=== PATIENT | male | born 1995 | race Hispanic/Latino ===

== ENCOUNTER 2017-05-29 15:53 | Emergency (ER) | payer OTHER ==
[~2017-05-29] VITALS: Ht 175.3 cm; Wt 81.8 kg
[2017-05-29 15:55] VITALS: BP 137/83; PULSE 83; RESP 16; O2SAT 100
--- NOTE | 2017-05-29 16:02 | ED.REPORT ---
HPI-Facial Injury Date of Service May 29, 2017 ED Provider: History of Present Illness: 22-year-old male for left upper eyelid laceration. He was elbowed during a soccer match today. He did not lose consciousness, no dizziness, no nausea or vomiting. He has no visual complaints, his globe itself is not painful. No discharge from his eye. Sent from urgent care. Nursing Notes Stated Complaint: INJURY TO LEFT EYE Chief Complaint: Laceration Nursing Notes Reviewed: Yes Allergies: Coded Allergies: No Known Allergies (Unverified , 05/29/17) General Time Seen by Provider: 15:58 Chief Complaint Laceration Hx Obtained From: Patient Arrived By: Walk-in Onset Occurred: Just prior to arrival Symptom Duration: Since onset Progression Since Onset: Unchanged Caused by: Direct blow Location: : Infraorbital Severity: Current: Mild Severity: Maximum: Mild Immunizations: All up to date Similar Sx Previous: No Past Medical History Past Medical History Notes: Denies Review of Systems Basic Review of Systems Respiratory: No shortness of breath, No cough, No wheeze Cardiovascular: No chest pain, No dyspnea on exertion, No orthopnea, No parox noct dyspnea, No palpitations GI: No abdominal pain, No anorexia, No nausea, No vomiting Allergy / Immune: No allergy Psychiatric: Normal thought content Constitutional: Denies: Chills, Fatigue, Fever Eyes: Reports: Eye pain left, Denies: Blurred bilateral, Discharge bilateral, Photophobia, Redness left, Visual loss bilateral Complete sys rev & neg: except as marked. Physical Exam Initial Vital Signs Vital Signs (First) Date Time Temp Pulse Resp B/P Pulse Ox O2 Delivery O2 Flow Rate FiO2 05/29/17 15:55 37.0 83 16 137/83 100 Room Air Initial VS: Reviewed, Vital signs normal General/Constitutional: Well-developed, Well-nourished Respiratory: Breath sounds normal, Clear to auscultation, No respiratory distress Cardiovascular: Regular rate & rhythm, Heart sounds normal, Intact distal pulses Abdomen / GI: Soft, Non-tender, No guarding, No rebound, No distention Extremities: Vascular intact, Neuro intact, No swelling, No tenderness Skin: Warm, Dry, No cyanosis Psychiatric: Mood/affect normal, Behavior normal, Normal thought content Head / Eyes: Normocephalic, PERRL, EOMI, No nystagmus, No periorbital redness, No photophobia, Conjunctiva NL, Cornea clear, No corneal abrasion, Visual acuity NL 3.5cm lac to Left Upper Eye and Brow, through brow. no subq tissue or fat protrusion. no pain with extraocular movement. no ptosis ENT: Atraumatic, Airway patent, Mucous membranes moist, Pharynx NL, Nose exam NL, No sinus tenderness, No facial swelling, Gums/dentition NL Neck: Atraumatic, Supple, Full range of motion, No swelling, Non-tender, No midline vertebral tend, No masses Neurologic: Oriented X3, Speech NL, No motor deficits, No sensory deficits Procedures Laceration Management Procedure Performed by: Allied health pract Wound Length: 3 cm Local Anesthesia: Lidocaine 1% Digital Block: No Wound Preparation: Hibiclens - Chlorhexidine, Normal saline Irrigation: Copious # Sutures - Skin: 5 Repair Subcutaneous: ___ O (5), Nylon Post-Procedure / Complications: Dressing applied, No complications, Condition improved, Tolerated procedure well, Patient stable Re-Eval/Medical Decision Med Decision/Clinical Course Med Decision/Clinical Course: dr newman viewed/examined pt, no ct needed. pt stable Discharge & Departure Departure Notes Laboratory Evaluation: Lab evaluation discussed Imaging Studies: Imaging discussed Procedures: Results discussed Response to Therapy: Improved Impression: Primary Impression: Laceration Additional Impression: Contusion, eye, left Encounter type: initial encounter Qualified Code: S05.12XA - Contusion of eyeball and orbital tissues, left eye, initial encounter Disposition: Home Discharge Condition All VS Reviewed: Yes Condition: Stable Patient Instructions: Laceration (DC) Additional Instructions: Monitor for signs of infection including redness, purulent drainage, increased swelling or pain return immediately if this happens. You may apply a topical antibiotic if desired. Keep dry for 24 hours then wash with soap and water likely. Follow-up for suture removal in 7 days. Cover feel be getting dirty otherwise wounds to better left open to air. Referrals: Shai Riggins MD (PCP) EDSupervising Provider for APC: Cyril Newman MD, Linnea K ARNP May 29, 2017 16:02
[2017-05-29 17:07] VITALS: BP 122/77; PULSE 70; RESP 16; O2SAT 99
[2017-05-29 17:10] VITALS: BP 122/77; PULSE 70; RESP 20; O2SAT 99
== END 2017-05-29 17:13 | disposition home or self-care (01) ==
LOC: SED 15:53
DX: S01.112A Laceration without foreign body of left eyelid and periocular area, initial encounter (principal); S05.12XA Contusion of eyeball and orbital tissues, left eye, initial encounter; W51.XXXA Accidental striking against or bumped into by another person, initial encounter; Y93.66 Activity, soccer; Y92.322 Soccer field as the place of occurrence of the external cause; Y99.8 Other external cause status